=== PATIENT | female | born 1950 ===

== ENCOUNTER → 2022-07-02 10:54 | Outpatient (BNVA) | payer OTHER, SELFPAY | PROVIDERS: PCP Internal Medicine; Visit Provider Internal Medicine Rheumatology | DX: M79.7 Fibromyalgia (principal); M19.049 Primary osteoarthritis, unspecified hand; M65.841 Other synovitis and tenosynovitis, right hand; M67.919 Unspecified disorder of synovium and tendon, unspecified shoulder; K21.9 Gastro-esophageal reflux disease without esophagitis | CPT/HCPCS: 99202 ==

== ENCOUNTER 2022-07-17 12:00 | Outpatient (REF) | payer OTHER, SELFPAY ==
--- NOTE | ~2022-07-17 | XR_ITS ---
EXAMINATION: XR HAND, BILATERAL CLINICAL INFORMATION: Osteoarthritis COMPARISON: None TECHNIQUE: 3 views of each hand FINDINGS: RIGHT HAND: There is mild ulnar subluxation of the middle phalanx of the 3rd finger with respect to the proximal phalanx. Bone alignment is otherwise normal. No fracture or dislocation is seen. There is severe arthritis at the IP joints with joint space narrowing and osteophyte formation. Joint spaces are otherwise normal. Soft tissues are normal. LEFT HAND: Bone alignment is normal. No fracture or dislocation is seen. There is arthritis at the IP joints with joint space narrowing and osteophyte formation.. Joint spaces are otherwise normal. Soft tissues are normal. XR/XR hand RT min 3V IMPRESSION: Osteoarthritis at the IP joints.
--- NOTE | ~2022-07-17 | XR_ITS ---
EXAMINATION: XR SHOULDER BILATERAL CLINICAL INFORMATION: Pain COMPARISON: None TECHNIQUE: 4 views of each shoulder FINDINGS: RIGHT: Bone alignment is normal. No fracture or dislocation is seen. There are mild degenerative changes at the acromioclavicular joint. The glenohumeral joint is normal. Soft tissues are normal. LEFT: Bone alignment is normal. No fracture or dislocation. There is a surgical tack or anchor in the humeral head. The glenohumeral joint is normal. There is arthritis at the acromioclavicular joint and undersurface acromial osteophyte. Soft tissues are unremarkable. XR/XR shoulder LT min 2V IMPRESSION: Arthritis at the bilateral acromioclavicular joints, left greater than right. Postsurgical changes to the left shoulder.
--- NOTE | ~2022-07-17 | XR_ITS ---
EXAMINATION: XR SHOULDER BILATERAL CLINICAL INFORMATION: Pain COMPARISON: None TECHNIQUE: 4 views of each shoulder FINDINGS: RIGHT: Bone alignment is normal. No fracture or dislocation is seen. There are mild degenerative changes at the acromioclavicular joint. The glenohumeral joint is normal. Soft tissues are normal. LEFT: Bone alignment is normal. No fracture or dislocation. There is a surgical tack or anchor in the humeral head. The glenohumeral joint is normal. There is arthritis at the acromioclavicular joint and undersurface acromial osteophyte. Soft tissues are unremarkable. XR/XR shoulder RT min 2V IMPRESSION: Arthritis at the bilateral acromioclavicular joints, left greater than right. Postsurgical changes to the left shoulder.
--- NOTE | ~2022-07-17 | XR_ITS ---
EXAMINATION: XR HAND, BILATERAL CLINICAL INFORMATION: Osteoarthritis COMPARISON: None TECHNIQUE: 3 views of each hand FINDINGS: RIGHT HAND: There is mild ulnar subluxation of the middle phalanx of the 3rd finger with respect to the proximal phalanx. Bone alignment is otherwise normal. No fracture or dislocation is seen. There is severe arthritis at the IP joints with joint space narrowing and osteophyte formation. Joint spaces are otherwise normal. Soft tissues are normal. LEFT HAND: Bone alignment is normal. No fracture or dislocation is seen. There is arthritis at the IP joints with joint space narrowing and osteophyte formation.. Joint spaces are otherwise normal. Soft tissues are normal. XR/XR hand LT min 3V IMPRESSION: Osteoarthritis at the IP joints.
[2022-07-17 14:51] LABS: C Reactive Protein 0.07 mg/dL (< or = 0.50)
[2022-07-17 15:25] LABS: Erythrocyte Sedimentation Rate 8 MM/HR (0-20)
== END 2022-07-17 12:01 | disposition home or self-care (01) ==
LOC: HO.LAB 12:00
PROVIDERS: PCP Internal Medicine; Visit Provider Internal Medicine Rheumatology
DX: M67.912 Unspecified disorder of synovium and tendon, left shoulder (principal); M79.7 Fibromyalgia; M25.511 Pain in right shoulder; M79.641 Pain in right hand; M79.642 Pain in left hand
CPT/HCPCS: 36415; 73030; 73130; 85652; 86140

== ENCOUNTER → 2022-08-08 08:12 | Outpatient (BNVA) | payer OTHER, SELFPAY | PROVIDERS: PCP Internal Medicine; Visit Provider Orthopaedic Surgery | DX: M72.0 Palmar fascial fibromatosis [Dupuytren] (principal); M19.049 Primary osteoarthritis, unspecified hand | CPT/HCPCS: 99202 ==